=== PATIENT | female | born 1985 | race Caucasian/White ===

== ENCOUNTER 2024-11-16 09:51 | Emergency (ER) | payer OTHER ==
[~2024-11-16] VITALS: Ht 165.1 cm; Wt 55.8 kg
[2024-11-16 09:58] VITALS: TEMP 36.8; O2SAT 100
[2024-11-16] MEDS: KETOROLAC 30MG/ML VIAL IM ONE (11:00)
[2024-11-16 11:02] LABS: CLARITY URINE CLOUDY (CLEAR); COLOR URINE ORANGE (YELLOW); GLUCOSE URINE NEGATIVE (NEGATIVE); KETONES URINE NEGATIVE (NEGATIVE); LEUKOCYTE ESTERASE URINE 2+ (NEGATIVE); NITRITE URINE POSITIVE (NEGATIVE); OCCULT BLOOD URINE 3+ (NEGATIVE); PH URINE 5.5 (4.5-8.0); PROTEIN URINE 1+ (NEGATIVE)
[2024-11-16 11:06] LABS: BASOPHILS % 0.4 % (0.0-2.0); EOSINOPHILS % 0.1 % (0.0-5.0); HEMATOCRIT. 32.9 % (36.0-48.0); HEMOGLOBIN. 10.7 g/dL (12.0-16.0); MEAN CORPUSCULAR HEMOGLOBIN 27.5 pg (28.0-32.0); MEAN CORPUSCULAR HGB CONC 32.4 g/dL (31.0-37.0); MEAN CORPUSCULAR VOLUME 84.8 fL (81.0-99.0); MEAN PLATELET VOLUME 6.5 fl (7.4-10.4); MONOCYTES % 12.9 % (2.0-8.0); NEUTROPHILS % 68.6 % (40.0-76.0); PLATELET 291 x1000/uL (130-400); RED BLOOD CELL COUNT 3.88 mill/uL (4.2-5.4); RED CELL DISTRIBUTION WIDTH 16.2 % (11.6-14.6); WHITE BLOOD COUNT 4.8 x1000/uL (4.5-11.0)
[2024-11-16 11:13] LABS: CARBON DIOXIDE 24 mEq/L (21-32); CHLORIDE 102 mEq/L (98-107); POTASSIUM 3.2 mEq/L (3.5-5.1); SODIUM 135 mEq/L (136-145)
[2024-11-16 11:14] LABS: CALCIUM 9.1 mg/dL (8.7-10.4)
[2024-11-16 11:18] LABS: CREATININE 0.7 mg/dL (0.6-1.0)
[2024-11-16 11:19] LABS: GLUCOSE 92 mg/dL (70-105); UREA NITROGEN BLOOD 8 mg/dL (9-23)
[2024-11-16] MEDS ORDERED: NITR100C MT (11:33)
[2024-11-16] MEDS ORDERED: IBUP-2028 MT (11:33)
[2024-11-16 11:42] LABS: HCG SCREEN NEGATIVE
[2024-11-16 12:00] LABS: MUCUS URINE 3+ /lpf (< = 2+); SQUAMOUS EPITHELIAL CELL URINE FEW /lpf (RARE/1+)
[2024-11-16 12:01] LABS: BACTERIA URINE 4+; RBC URINE 25-50 /hpf (0-2); WBC URINE 25-50 /hpf (0-2)
[2024-11-16 12:45] VITALS: BP 99/56; PULSE 71; RESP 17; O2SAT 100
[2024-11-16 13:49] LABS: INFLUENZA TYPE A Presumptive Negative (Pres. Neg.); INFLUENZA TYPE B Presumptive Negative (Pres. Neg.)
== END 2024-11-16 12:47 | disposition home or self-care (01) ==
LOC: ER 09:51
DX: N39.0 Urinary tract infection, site not specified (principal); E03.9 Hypothyroidism, unspecified; Z98.890 Other specified postprocedural states; Z79.899 Other long term (current) drug therapy; Z98.84 Bariatric surgery status; Z20.822 Contact with and (suspected) exposure to COVID-19
CPT/HCPCS: 99284; 71045; 87426; 80048; 81003; 81025; 84703; 85025; 87086; 87186; 87804 ×2; 87077; 36415; 96372; J1885